=== PATIENT | male | born 1980 ===

== ENCOUNTER 2017-11-26 17:22 | Inpatient (IN) | payer OTHER ==
[2017-11-26] MEDS ORDERED: Sodium Chloride 0.9% 1,000 ML IV STA ×3 (18:02→20:38)
--- NOTE | 2017-11-26 18:21 | ED PDOC ---
Arrival/HPI - General Historian: Patient - History of Present Illness Time/Duration: Other (3 days) Symptom Onset: Gradual Symptom Course: Unchanged Quality: Aching Severity Level: 2 <Nivia Alex - Last Filed: 11/26/17 22:42> <Tammy To - Last Filed: 11/27/17 16:02> - General Time Seen by Provider: 11/26/17 18:01 - History of Present Illness Narrative History of Present Illness (Text): 11/26/17 18:18 37-year-old male presents today with dark urine 3 days. Patient states 3 days ago he started doing a heavy workout and eating healthy and drinking lots of fluids. Patient states he started to notice that his urine changed in color and over the past 3 days he has been having continual dark urine. He denies dysuria or urinary frequency. Denies abdominal pain. Denies nausea or vomiting. Denies chest pain or shortness of breath. He denies back/flank pain. Patient states he has generalized body aches which he correlates to working out. No other complaints. No medications have been taken at home. (Nivia Alex) Past Medical History - Provider Review Nursing Documentation Reviewed: Yes - Travel History Have you recently traveled outside [place] w/in the past 3 mons?: No - Tetanus Immunization Tetanus Immunization: Unknown <Nivia Alex - Last Filed: 11/26/17 22:42> Family/Social History - Physician Review Nursing Documentation Reviewed: Yes Family/Social History: Unknown Family HX <Nivia Alex - Last Filed: 11/26/17 22:42> Allergies/Home Meds <Nivia Alex - Last Filed: 11/26/17 22:42> <Tammy To - Last Filed: 11/27/17 16:02> Allergies/Adverse Reactions: Allergies No Known Allergies Allergy (Verified 11/26/17 18:02) Home Medications: Home Meds Medication Instructions Recorded Confirmed No Known Home Med 11/26/17 11/26/17 Review of Systems - Review of Systems Constitutional: Other (bodyaches). absent: Fatigue, Fevers Respiratory: absent: SOB, Cough Cardiovascular: absent: Chest Pain, Palpitations Gastrointestinal: absent: Abdominal Pain, Nausea, Vomiting Genitourinary Male: Other (dark urine). absent: Dysuria, Frequency, Hematuria Musculoskeletal: absent: Back Pain, Neck Pain Skin: absent: Rash, Pruritis Neurological: absent: Headache, Dizziness Psychiatric: absent: Anxiety, Depression, Suicidal Ideation <Nivia Alex - Last Filed: 11/26/17 22:42> Physical Exam Vital Signs Reviewed: Yes Temperature: Afebrile Blood Pressure: Normal Pulse: Regular Respiratory Rate: Normal Appearance: Positive for: Well-Appearing, Non-Toxic, Comfortable Pain Distress: None Mental Status: Positive for: Alert and Oriented X 3 - Systems Exam Head: Present: Atraumatic Mouth: Present: Moist Mucous Membranes Neck: Present: Normal Range of Motion Respiratory/Chest: Present: Clear to Auscultation, Good Air Exchange. No: Respiratory Distress, Accessory Muscle Use Cardiovascular: Present: Regular Rate and Rhythm, Normal S1, S2. No: Murmurs Abdomen: Present: Normal Bowel Sounds. No: Tenderness, Distention, Peritoneal Signs, Rebound, Guarding Back: Present: Normal Inspection. No: CVA Tenderness, Midline Tenderness, Paraspinal Tenderness Upper Extremity: Present: Normal ROM Lower Extremity: Present: Normal ROM Neurological: Present: GCS=15, Speech Normal Skin: Present: Warm, Dry, Normal Color. No: Rashes Psychiatric: Present: Alert, Oriented x 3 <Nivia Alex - Last Filed: 11/26/17 22:42> Vital Signs Temp Pulse Resp BP Pulse Ox 11/26/17 23:00 62 18 148/84 100 11/26/17 19:51 62 18 130/78 100 11/26/17 17:50 98.8 F 64 18 135/80 99 Medical Decision Making <Nivia Alex - Last Filed: 11/26/17 22:42> <Tammy To - Last Filed: 11/27/17 16:02> ED Course and Treatment: 11/26/17 18:20 37yr old male with 3 day history of dark colored urine. generalized bodyaches. vitals stable. cbc; wnl cmp; elevated ast; 1826. alt;616 cpk; [id number] UA: + blood, + ketones Pt given NS iv bolus 11/26/17 20:57 pt given a total of 3L NS; case discussed with ICU; dr. martino; accepts ICU admission for rhabdomyolysis with elevated LFTs Impression: Rhabdomyolysis, elevated LFTs Admit to ICU (Nivia Alex) - Lab Interpretations Lab Results: 11/26/17 17:00 11/26/17 17:00 Lab Results 11/26/17 17:00: PT 10.3, INR 0.91 L, APTT 30.6 11/26/17 17:00: Alcohol, Quantitative < 10 11/26/17 17:00: Salicylates < 1 L, Acetaminophen < 10.0 L 11/26/17 17:00: WBC 8.9, RBC 4.40, Hgb 13.8 L, Hct 40.6 L, MCV 92.3, MCH 31.4, MCHC 34.0, RDW 13.5, Plt Count 158, MPV 12.5 H, Gran % 73.3 H, Lymph % (Auto) 18.6 L, [place] % (Auto) 4.4, Eos % (Auto) 3.6, Baso % (Auto) 0.1, Gran # 6.52 H, Lymph # (Auto) 1.7, [place] # (Auto) 0.4, Eos # (Auto) 0.3, Baso # (Auto) 0.01 11/26/17 17:00: Sodium 143, Potassium 4.1, Chloride 109 H, Carbon Dioxide 28, Anion Gap 10, BUN 12, Creatinine 0.8, Est GFR ( Amer) > 60, Est GFR (Non- Af Amer) > 60, Random Glucose 95, Calcium 9.2, Total Bilirubin 0.7, AST 1826 H, ALT 616 H, Alkaline Phosphatase 56, Total Creatine Kinase 516278 H, Total Protein 6.5, Albumin 3.8, Globulin 2.7, Albumin/Globulin Ratio 1.4 11/26/17 17:00: Urine Color Yellow, Urine Appearance Sl cloudy, Urine pH 6.5, Ur Specific [place] >= 1.030, Urine Protein 100 H, Urine Glucose (UA) Negative, Urine Ketones Trace H, Urine Blood Large H, Urine Nitrate Negative, Urine Bilirubin Small H, Urine Urobilinogen 0.2, Ur Leukocyte Esterase Negative, Urine RBC 2 - 5, Urine WBC Negative - Medication Orders Current Medication Orders: Famotidine (Pepcid) 40 mg PO HS [facility] Last Admin: 11/26/17 23:36 Dose: 40 mg Heparin Sodium (Porcine) (Heparin) 5,000 units SC Q12 [facility] PRN Reason: Protocol Last Admin: 11/27/17 09:24 Dose: 5,000 units Subcutaneous Administrations Document 11/27/17 09:24 JUR (Rec: 11/27/17 09:24 JUR [facility] [id number]) Injection Site MAR Injection Site Right Arm Charges for Administration # of Subcutaneous Administrations 1 Lactated Ringer's (Lactated Ringer's) 1,000 mls @ 150 mls/hr IV .Q6H40M [facility] Ondansetron HCl (Zofran Inj) 4 mg IVP Q6H PRN PRN Reason: Nausea/Vomiting Discontinued Medications Sodium Chloride (Sodium Chloride 0.9%) 1,000 mls @ 999 mls/hr IV .Q1H1M STA Stop: 11/26/17 19:02 Last Admin: 11/26/17 18:03 Dose: 999 mls/hr eMAR Start Stop Document 11/26/17 18:03 SF (Rec: 11/26/17 18:19 [email or web address]) Intravenous Solution Start Date 11/26/17 Start Time 18:03 End Date 11/26/17 End time 19:04 Total Infusion Time 61 Sodium Chloride (Sodium Chloride 0.9%) 1,000 mls @ 999 mls/hr IV .Q1H1M STA Stop: 11/26/17 20:49 Last Admin: 11/26/17 19:52 Dose: 999 mls/hr eMAR Start Stop Document 11/26/17 19:52 SF (Rec: 11/26/17 19:52 SF [facility] [email or web address]) Intravenous Solution Start Date 11/26/17 Start Time 19:52 End Date 11/26/17 End time 20:53 Total Infusion Time 61 Sodium Chloride (Sodium Chloride 0.9%) 1,000 mls @ 999 mls/hr IV .Q1H1M STA Stop: 11/26/17 21:38 Last Admin: 11/26/17 20:46 Dose: 999 mls/hr eMAR Start Stop Document 11/26/17 20:46 SF (Rec: 11/26/17 20:46 SF [facility] [email or web address]) Intravenous Solution Start Date 11/26/17 Start Time 20:46 End Date 11/26/17 End time 21:47 Total Infusion Time 61 Lactated Ringer's (Lactated Ringer's) 1,000 mls @ 300 mls/hr IV .Q3H20M [facility] Last Admin: 11/27/17 13:55 Dose: 300 mls/hr eMAR Start Stop Document 11/27/17 13:55 MJO (Rec: 11/27/17 13:55 MJO [id number]) Intravenous Solution Start Date 11/27/17 Start Time 13:55 - PA / TOOTH INSPECTOR / Resident Statement /DO has reviewed & agrees with the documentation as recorded. <Tammy To - Last Filed: 11/27/17 16:02> Disposition/Present on Arrival - Present on Arrival Any Indicators Present on Arrival: No History of DVT/PE: No History of Uncontrolled Diabetes: No Urinary Catheter: No History of Decub. Ulcer: No - Disposition Have Diagnosis and Disposition been Completed?: Yes Disposition Time: 20:58 Patient Plan: ICU <Nivia Alex - Last Filed: 11/26/17 22:42> <Tammy To - Last Filed: 11/27/17 16:02> - Disposition Diagnosis: Rhabdomyolysis, Elevated LFTs Disposition: HOSPITALIZED Condition: CRITICAL
[2017-11-26 18:30] LABS: BASO # 0.01 K/mm3 (0.0-2.0); BASO % 0.1 % (0.0-3.0); EOS # 0.3 (0.0-0.7); EOS % 3.6 % (1.5-5.0); GRAN # 6.52 (1.4-6.5); GRAN % 73.3 % (50.0-68.0); HEMOGLOBIN 13.8 g/dL (14.0-18.0); LYMPH # 1.7 (1.2-3.4); LYMPH % 18.6 % (22.0-35.0); MEAN CELL VOLUME 92.3 fl (80.0-105.0); MEAN CORPUSCULAR HEMOGLOBIN 31.4 pg (25.0-35.0); MEAN PLATELET VOLUME 12.5 fl (7.0-11.0); MONO # 0.4 (0.1-0.6); MONO % 4.4 % (1.0-6.0); RBC 4.4 10^6/uL (3.5-6.1); RED CELL DISTRIBUTION WIDTH 13.5 % (11.5-14.5); WHITE BLOOD COUNT 8.9 10^3/ul (4.5-11.0)
[2017-11-26 18:33] LABS: PH,URINE 6.5 (4.7-8.0); URINE BILIRUBIN SMALL (NEGATIVE); URINE BLOOD LARGE (NEGATIVE); URINE GLUCOSE (UA) NEGATIVE (NEGATIVE); URINE LEUKOCYTE ESTERASE NEGATIVE Leu/uL (NEGATIVE); URINE PROTEIN 100 mg/dL (<30 mg/dL); URINE UROBILINOGEN 0.2 E.U./dL (<1 E.U./dL)
[2017-11-26 18:34] LABS: URINE APPEARANCE SL CLOUDY (CLEAR); URINE COLOR YELLOW (YELLOW)
[2017-11-26 18:35] LABS: URINE WBC NEGATIVE /hpf (0-6)
[2017-11-26 19:10] LABS: ALB/GLOB RATIO 1.4 (1.1-1.8); ALBUMIN 3.8 g/dL (3.0-4.8); ALT/SGPT 616 U/L (7-56); BLOOD UREA NITROGEN 12 mg/dL (7-21); CALCIUM 9.2 mg/dL (8.4-10.5); GFR AFRICAN-AMERICAN > 60; GFR NON-AFRICAN AMERICAN > 60
[2017-11-26 19:16] LABS: AST/SGOT 1826 U/L (17-59)
[2017-11-26 21:13] LABS: INR 0.91 (0.93-1.08); PARTIAL THROMBOPLASTIN TIME 30.6 Seconds (25.1-36.5); PROTHROMBIN TIME 10.3 SECONDS (9.4-12.5)
[2017-11-26 21:22] LABS: ACETAMINOPHEN < 10.0 ug/ml (10.0-20.0); SALICYLATE < 1 mg/dL (2.0-20.0)
[2017-11-26 22:23] LABS: BARBITURATES, UR NEGATIVE (NEGATIVE); BENZODIAZEPINES, UR NEGATIVE (NEGATIVE); OPIATES, UR NEGATIVE (NEGATIVE); PHENCYCLIDINE, UR NEGATIVE (NEGATIVE)
[2017-11-26] MEDS: Lactated Ringer's 1,000 ML IV SCH (23:15)
--- NOTE | 2017-11-27 00:37 | CP.PCM.HP ---
<Donna Benito - Last Filed: 11/27/17 03:24> History of Present Illness - History of Present Illness History of Present Illness: PGY-[address] Hayes H&P, ICU consult: Rhabdomyolysis 37 years old male, active smoker, with no significant medical history, who does not work out routinely, started to work out vigorously 3 days ago, and noticed dark urine 2 days ago, which prompted pt to come to the ED. Pt states that he had a whole body work out, including lifting 100lb weighs x 15 for 3 reps. After 1st day of work out, he started to have whole body muscle ache. After 2nd and 3rd day of work out, whole body ache persists, and he noticed stefany color urine. He did not take any medicine for muscle pain. He denies using steroid, testosterone, herbal supplements. The amount and frequency of urination is normal, no weak stream, no sensation of incomplete emptying, no dysuria, no pain. 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 Dr. James Mendes, opthalmologist FH: No inherited myopathy. No Autoimmune dz. (+) DM, HTN SH: Active smoker 1ppd x 20 years. 2-3 beer per month. no drugs ALL: NKDA Med: None. Occasional advil for pain PMD: None Present on Admission - Present on Admission Any Indicators Present on Admission: No Past Patient History - Tetanus Immunizations Tetanus Immunization: Unknown - Past Social History Smoking Status: Light Smoker < 10 Cigarettes Daily - CARDIAC Hx Cardiac Disorders: No - PULMONARY Hx Respiratory Disorders: No - NEUROLOGICAL Hx Neurological Disorder: No - HEENT Hx HEENT Problems: No - RENAL Hx Chronic Kidney Disease: No - ENDOCRINE/METABOLIC Hx Endocrine Disorders: No - HEMATOLOGICAL/ONCOLOGICAL Hx Blood Disorders: No - INTEGUMENTARY Hx Dermatological Problems: No - MUSCULOSKELETAL/RHEUMATOLOGICAL Hx Musculoskeletal Disorders: No - GASTROINTESTINAL Hx Gastrointestinal Disorders: No - GENITOURINARY/GYNECOLOGICAL Hx Genitourinary Disorders: No - PSYCHIATRIC Hx Psychophysiologic Disorder: No Hx Substance Use: No - SURGICAL HISTORY Hx Surgeries: Yes Other/Comment: right eye surgery x2 in 2013 post trauma to eye - ANESTHESIA Hx Anesthesia: Yes Meds Allergies/Adverse Reactions: Allergies Allergy/AdvReac Type Severity Reaction Status Date / Time No Known Allergies Allergy Verified 11/26/17 18:02 Physical Exam - Constitutional Appears: No Acute Distress - Head Exam Head Exam: ATRAUMATIC, NORMAL INSPECTION, NORMOCEPHALIC - Eye Exam Eye Exam: EOMI, Normal appearance Pupil Exam: NORMAL ACCOMODATION, PERRL - ENT Exam ENT Exam: Mucous Membranes Moist, Normal Exam - Neck Exam Additional comments: supple - Respiratory Exam Respiratory Exam: Clear to Auscultation Bilateral, NORMAL BREATHING PATTERN. absent: Rales, Rhonchi, Wheezes - Cardiovascular Exam Cardiovascular Exam: REGULAR RHYTHM, +S1, +S2 - GI/Abdominal Exam GI & Abdominal Exam: Normal Bowel Sounds, Soft. absent: Guarding, Tenderness - Extremities Exam Extremities exam: Positive for: pedal pulses present. Negative for: calf tenderness - Back Exam Back exam: absent: CVA tenderness (L), CVA tenderness (R) - Neurological Exam Neurological exam: Alert, CN II-XII Intact, Oriented x3, Reflexes Normal - Psychiatric Exam Psychiatric exam: Normal Affect, Normal Mood Results - Vital Signs Recent Vital Signs: Last Vital Signs Temp 98.8 F 11/26/17 17:50 Pulse 62 11/26/17 23:00 Resp 18 11/26/17 23:00 BP 148/84 11/26/17 23:00 Pulse Ox 100 11/26/17 23:00 - Labs Result Diagrams: 11/26/17 17:00 11/26/17 17:00 Labs: Laboratory Results - last 24 hr 11/26/17 11/26/17 11/26/17 21:00 21:00 22:49 Phosphorus 3.3 Magnesium 1.9 Urine Opiates Screen Negative Urine Methadone Screen Negative Ur Barbiturates Screen Negative Ur Phencyclidine Scrn Negative Ur Amphetamines Screen Negative U Benzodiazepines Scrn Negative U Oth Cocaine Metabols Negative U Cannabinoids Screen Negative Influenza Typ A,B (EIA) Negative for flu a/b Assessment & Plan - Assessment and Plan (Free Text) Plan: 37 years old male, active smoker, with no significant medical history, who does not work out routinely, started to work out vigorously 3 days ago, and noticed dark urine with whole body ache. He denies using steroid, testosterone, herbal supplements. His Total Creatine Kinase is [id number], AST 1826, ALT 616. He has Exertional rhabdomyolysis. Elevated AST/ALT likely from muscle injury. Neuro - AAO x 3 Pulm - O2 PRN Titrate to SaO2 > 92% Cardio - Maintain nomotensive, HR 60-100 Renal - LR @ 300 - CK q6h - Goal U/O is 200-300 per hour. Notify doctor if goal is not met - strict i/o, daily wt. GI - hepatitis panel - AST/ALT q6h - heart health diet - Pepcid 40 HS - Zofran PRN Musculoskeletal - May consider JASON, Ant DVT prophylaxis - heparin GI prophylaxis - low risk of stress ulcer s/r/d/w Dr. Hayes <Abigail,Vitaly Q - Last Filed: 11/27/17 07:23> Results - Vital Signs Recent Vital Signs: Last Vital Signs Temp 98.4 F 11/27/17 00:32 Pulse 47 L 11/27/17 06:00 Resp 18 11/27/17 00:32 BP 140/82 11/27/17 00:32 Pulse Ox 100 11/26/17 23:00 - Labs Result Diagrams: 11/26/17 17:00 11/26/17 17:00 Labs: Laboratory Results - last 24 hr 11/26/17 11/26/17 11/26/17 21:00 21:00 22:49 Phosphorus 3.3 Magnesium 1.9 AST ALT Total Creatine Kinase CK-MB (CK-2) CK-MB (CK-2) % Urine Opiates Screen Negative Urine Methadone Screen Negative Ur Barbiturates Screen Negative Ur Phencyclidine Scrn Negative Ur Amphetamines Screen Negative U Benzodiazepines Scrn Negative U Oth Cocaine Metabols Negative U Cannabinoids Screen Negative Influenza Typ A,B (EIA) Negative for flu a/b 11/27/17 01:40 Phosphorus Magnesium AST 1434 H ALT 531 H Total Creatine Kinase 59114 H CK-MB (CK-2) 23.2 H CK-MB (CK-2) % 0.0 L Urine Opiates Screen Urine Methadone Screen Ur Barbiturates Screen Ur Phencyclidine Scrn Ur Amphetamines Screen U Benzodiazepines Scrn U Oth Cocaine Metabols U Cannabinoids Screen Influenza Typ A,B (EIA) Attending/Attestation - Attestation I have personally seen and examined this patient.: Yes I have fully participated in the care of the patient.: Yes I have reviewed all pertinent clinical information: Yes Notes (Text): 11/27/17 07:13 I agree with the note and exam by the resident as listed above with the addition /exception of the followin37 y/o male without a significant PMHx came to the ED due to darkened urine color and muscle cramps for 2 days. 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 In the Ed he was found to be in rhabdomyolysis with a CK over 100K; aggressive IVF hydration initiated and maintained while in the ICU. Elevated transaminitis likely secondary to rhabdo as well labs all reviewed personally case discussed with the residents and NIKITA Gonzáles total time of care: 40 minutes
[2017-11-27 00:50] VITALS: BMI 25.5
[2017-11-27 02:58] LABS: CK-MB 23.2 ng/mL (0.0-3.6)
[2017-11-27] MEDS: Lactated Ringer's 1,000 ML IV SCH ×4 (02:58→13:55)
[2017-11-27 07:03] LABS: BASO # 0.01 K/mm3 (0.0-2.0); BASO % 0.1 % (0.0-3.0); EOS # 0.3 (0.0-0.7); EOS % 4.3 % (1.5-5.0); GRAN # 4.99 (1.4-6.5); GRAN % 66.4 % (50.0-68.0); HEMOGLOBIN 12.3 g/dL (14.0-18.0); LYMPH # 1.9 (1.2-3.4); LYMPH % 25.2 % (22.0-35.0); MEAN CELL VOLUME 92.8 fl (80.0-105.0); MEAN CORPUSCULAR HEMOGLOBIN 30.5 pg (25.0-35.0); MEAN CORPUSCULAR HGB CONC 32.9 g/dl (31.0-37.0); MEAN PLATELET VOLUME 12.7 fl (7.0-11.0); MONO # 0.3 (0.1-0.6); RBC 4.03 10^6/uL (3.5-6.1); RED CELL DISTRIBUTION WIDTH 13.6 % (11.5-14.5); WHITE BLOOD COUNT 7.5 10^3/ul (4.5-11.0)
[2017-11-27 07:37] LABS: ALB/GLOB RATIO 1.2 (1.1-1.8); ALBUMIN 2.9 g/dL (3.0-4.8); ALT/SGPT 514 U/L (7-56); AST/SGOT 1435 U/L (17-59); BLOOD UREA NITROGEN 6 mg/dL (7-21); CALCIUM 8.8 mg/dL (8.4-10.5); GFR AFRICAN-AMERICAN > 60; GFR NON-AFRICAN AMERICAN > 60
[2017-11-27 08:26] LABS: CK-MB 19.2 ng/mL (0.0-3.6)
--- NOTE | 2017-11-27 10:26 | CARD ---
APPROVED REPORT EKG Measurement Heart [id number] IN [id number] <Conclusion> Normal sinus rhythm Incomplete right bundle branch block Borderline ECG
--- NOTE | 2017-11-27 11:35 | CON ---
DATE: 11/27/2017 HISTORY OF PRESENT ILLNESS: This is a 37-year-old with gentleman who is an active smoker; however, without significant past medical history, who presented after his routine workout including lifting weights who started noticing dark urine about 2 days ago and which did not resolve. He denies any other complaints. No fever, no chills, no sweats. No nausea, no vomiting, no diarrhea. No muscle cramps. The patient was found to have rhabdomyolysis with CPK coming up to 100,000s. The aggressive hydration was started and Hernandez catheter was placed for urine output. Over the night, urine output was 100-200 mL per hour. He is on 300 mL/hour of lactated Ringer. He reports feeling much better since his admission to the ICU. The patient does report some muscle aches prior to admission. PAST MEDICAL HISTORY: Right eye blindness. PAST SURGICAL HISTORY: Right renal detachment, status post surgery in 2013. Right cataract surgery. FAMILY HISTORY: Not contributory. SOCIAL HISTORY: The patient is active smoker, 1 pack a day for 20 years. He drinks 2-3 beers per month. No drugs. ALLERGIES: NKDA. MEDICATIONS: None. REVIEW OF SYSTEMS: Review of 12-organ system other than mentioned in history of present illness is negative. PHYSICAL EXAMINATION: VITAL SIGNS: Temperature 98.4, blood pressure 140/82, heart rate 65, respiratory rate 18, oxygen saturation 100% on room air. ENT: Head and neck atraumatic. LUNGS: Clear to auscultation bilaterally. HEART: Regular rate and rhythm. S1 and S2 normal. ABDOMEN: Soft, nontender and nondistended. MUSCULOSKELETAL: No C/C/E. NEURO: The patient moves all extremities spontaneously. SKIN: Moist. PSYCH: The patient is alert and oriented x3. LABORATORY DATA: WBC is 7.5, hemoglobin 12.3, platelet count 140. Sodium 143, potassium 4.1, chloride 108, carbon dioxide 31, BUN 6, creatinine 0.7, glucose 85, AST 1435, ALT 514 down from 531, CPK 72,137 down from 110,532. Influenza negative. Urine drug screen is negative. Salicylates, acetaminophen and alcohol less than 1, 10 and 10 respectively. INR 0.91. MEDICATIONS: Heparin subcu, Pepcid, lactated Ringer, Zofran p.r.n. ASSESSMENT AND PLAN: This is a 37-year-old gentleman who presented with severe rhabdomyolysis without acute kidney injury. He was started on lactated Ringer due to shortage of normal saline and his urine output being adequate. He is asymptomatic at present time. He is hemodynamically and respiratory malloy stable. He is able to protect his airways and reports that he is hungry. We will advance his oral diet. We will continue with deep venous thrombosis/gastrointestinal prophylaxis. We will maintain euvolemia, euglycemia, normothermia and oxygen saturation more than 90%. We will continue with goal of urine output more than 0.5 mL/kg/hour. Okay to downgrade to Med-Surg. ccm time 40 min Andre Robledo MD [facility]
[2017-11-27 12:00] LABS: ALT/SGPT 552 U/L (7-56); BLOOD UREA NITROGEN 7 mg/dL (7-21); CALCIUM 9.2 mg/dL (8.4-10.5); GFR AFRICAN-AMERICAN > 60; GFR NON-AFRICAN AMERICAN > 60
[2017-11-27 12:09] LABS: AST/SGOT 1462 U/L (17-59)
[2017-11-27 13:33] LABS: CK-MB 16.2 ng/mL (0.0-3.6)
[2017-11-27] MEDS ORDERED: Influenza Vaccine 60 mcg/0.5 mL SYR (4YR UP) IM ONE (13:42)
[2017-11-27 13:59] LABS: HEPATITIS B SURFACE AG Negative (NEGATIVE)
[2017-11-27 14:05] LABS: HEPATITIS A IGM NEGATIVE (NEGATIVE); HEPATITIS B CORE AB NEGATIVE (NEGATIVE)
--- NOTE | 2017-11-27 14:05 | CP.PCM.CON ---
History of Present Illness - History of Present Illness History of Present Illness: Nephrology Consultation Note: Assessment: Stable Severe rhabdomyolysis likely due to physical workout/exertion Active smoker Plan No acute need for renal replacement therapy at this time. Monitor Input/Output, daily weights and renal function with basic metabolic panel, And electrolytes closely Continue the IV fluids. Can discontinue Hernandez catheter Lowered unable to 200 mL per hour tomorrow Continue to monitor CPK level Replace electrolytes as needed Can change IV fluid to normal saline if serum sodium < 135 meq/L Dose meds/antibiotics for Normal GFR. Avoid fleets enema/magnesium based laxatives. Avoid nephrotoxins/NSAIDs/ iodinated contrast (unless needed emergently) Glycemic control Further work up/management as per primary team Patient advised to stop smoking Patient advised for gradual physical workout in the future and avoid heavy physical exertion. Thanks for allowing me to participate in care of your patient. Will follow patient with you. Please call if any Qs. Discussed with team Dr Yves Laguna Office: [phone] Chief Complaint; Muscle aches HPI: Pt is a 37-year-old male without any past medical history active smoker 1 pack per day, started working out recently for last 3 days, came with the complaint of body aches and dark-colored urine. Found to have severe rhabdomyolysis, placed in the ICU then transferred to [facility] floor. Seen for nephrology consultation Patient at this time feels much better. Denies any complaints. Denies any drugs. Denies OTC/herbal meds or NSAIDs No recent iodinated contrast exposure. No obvious episodes of low BP. ROS: Cardiovascular: No chest pain. Pulmonary: No shortness of breath Gastrointestinal: denies abdominal pain No nausea. No vomiting. Genitourinary: No pain while urinating. Denies blood in urine. All other negative except as mentioned in HPI Physical Examination: bedside General Appearance: Comfortable, in no acute respiratory distress, co-operative . Vitals reviewed and noted as below Head; Atraumatic, normocephalic ENT: no ulcers no thrush. Tongue is midline. Oropharynx: no rash or ulcers. EYES: Eye muscles and extraocular movement intact. Sclera is anicteric. Right eye loss because of injury in the past Neck; supple no lymphadenopathy, no thyromegaly or bruit Lungs: Normal respiratory rate/effort. Breath sounds bilateral equal and clear Heart: Normal rate. s1s2 normal. No rub or gallop. Extremities: no edema. No varicose veins Neurological: Patient is alert, awake and oriented to person, place and time. No focal deficit. Strength bilateral appropriate and equal Skin: Warm and dry. Normal turgor. No rash. Palpitation: Normal elasticity for age Abdomen: Abdomen is soft. Bowel sounds +. There is no abdominal tenderness, no guarding/rigidity no organomegaly Psych: normal insight and normal affect/mood MSK: no joint tenderness or swelling. Digits and nails normal, no deformity : kidney or bladder not palpable. His Hernandez catheter Labs/imaging reviewed. Past medical history, past surgical history, family history, social history, allergy reviewed and noted as below Family hx: no hx of CKD. Rest non-contributory Past Patient History - Tetanus Immunizations Tetanus Immunization: Unknown - Past Social History Smoking Status: Light Smoker < 10 Cigarettes Daily - CARDIAC Hx Cardiac Disorders: No - PULMONARY Hx Respiratory Disorders: No - NEUROLOGICAL Hx Neurological Disorder: No - HEENT Hx HEENT Problems: No - RENAL Hx Chronic Kidney Disease: No - ENDOCRINE/METABOLIC Hx Endocrine Disorders: No - HEMATOLOGICAL/ONCOLOGICAL Hx Blood Disorders: No - INTEGUMENTARY Hx Dermatological Problems: No - MUSCULOSKELETAL/RHEUMATOLOGICAL Hx Musculoskeletal Disorders: No - GASTROINTESTINAL Hx Gastrointestinal Disorders: No - GENITOURINARY/GYNECOLOGICAL Hx Genitourinary Disorders: No - PSYCHIATRIC Hx Psychophysiologic Disorder: No Hx Substance Use: No - SURGICAL HISTORY Hx Surgeries: Yes Other/Comment: right eye surgery x2 in 2013 post trauma to eye - ANESTHESIA Hx Anesthesia: Yes Meds Allergies/Adverse Reactions: Allergies Allergy/AdvReac Type Severity Reaction Status Date / Time No Known Allergies Allergy Verified 11/26/17 18:02 - Medications Medications: Current Medications Famotidine (Pepcid) 40 mg PO HS [facility] Last Admin: 11/26/17 23:36 Dose: 40 mg Heparin Sodium (Porcine) (Heparin) 5,000 units SC Q12 [facility] PRN Reason: Protocol Last Admin: 11/27/17 09:24 Dose: 5,000 units Lactated Ringer's (Lactated Ringer's) 1,000 mls @ 300 mls/hr IV .Q3H20M [facility] Last Admin: 11/27/17 13:55 Dose: 300 mls/hr Ondansetron HCl (Zofran Inj) 4 mg IVP Q6H PRN PRN Reason: Nausea/Vomiting Results - Vital Signs Recent Vital Signs: Last Vital Signs Temp 98.4 F 11/27/17 00:32 Pulse 58 L 11/27/17 09:40 Resp 19 11/27/17 09:40 BP 139/82 11/27/17 09:00 Pulse Ox 97 11/27/17 09:40 - Labs Result Diagrams: 11/27/17 05:45 11/27/17 11:40 Labs: Laboratory Results - last 24 hr 11/26/17 11/26/17 11/26/17 21:00 21:00 22:49 WBC RBC Hgb Hct MCV MCH MCHC RDW Plt Count MPV Gran % Lymph % (Auto) [place] % (Auto) Eos % (Auto) Baso % (Auto) Gran # Lymph # (Auto) [place] # (Auto) Eos # (Auto) Baso # (Auto) Sodium Potassium Chloride Carbon Dioxide Anion Gap BUN Creatinine Est GFR ( Amer) Est GFR (Non-Af Amer) Random Glucose Calcium Phosphorus 3.3 Magnesium 1.9 Total Bilirubin AST ALT Alkaline Phosphatase Total Creatine Kinase CK-MB (CK-2) CK-MB (CK-2) % Total Protein Albumin Globulin Albumin/Globulin Ratio Urine Opiates Screen Negative Urine Methadone Screen Negative Ur Barbiturates Screen Negative Ur Phencyclidine Scrn Negative Ur Amphetamines Screen Negative U Benzodiazepines Scrn Negative U Oth Cocaine Metabols Negative U Cannabinoids Screen Negative Influenza Typ A,B (EIA) Negative for flu a/b 11/27/17 11/27/17 11/27/17 01:40 05:45 05:45 WBC 7.5 RBC 4.03 Hgb 12.3 L Hct 37.4 L MCV 92.8 MCH 30.5 MCHC 32.9 RDW 13.6 Plt Count 140 MPV 12.7 H Gran % 66.4 Lymph % (Auto) 25.2 [place] % (Auto) 4.0 Eos % (Auto) 4.3 Baso % (Auto) 0.1 Gran # 4.99 Lymph # (Auto) 1.9 [place] # (Auto) 0.3 Eos # (Auto) 0.3 Baso # (Auto) 0.01 Sodium 143 Potassium 4.0 Chloride 108 H Carbon Dioxide 31 Anion Gap 8 L BUN 6 L Creatinine 0.7 L Est GFR ( Amer) > 60 Est GFR (Non-Af Amer) > 60 Random Glucose 85 Calcium 8.8 Phosphorus 3.7 Magnesium 1.8 Total Bilirubin 0.6 AST 1434 H 1435 H ALT 531 H 514 H Alkaline Phosphatase 43 Total Creatine Kinase 40725 H 42710 H CK-MB (CK-2) 23.2 H 19.2 H CK-MB (CK-2) % 0.0 L 0.0 L Total Protein 5.4 L Albumin 2.9 L Globulin 2.5 Albumin/Globulin Ratio 1.2 Urine Opiates Screen Urine Methadone Screen Ur Barbiturates Screen Ur Phencyclidine Scrn Ur Amphetamines Screen U Benzodiazepines Scrn U Oth Cocaine Metabols U Cannabinoids Screen Influenza Typ A,B (EIA) 11/27/17 11:40 WBC RBC Hgb Hct MCV MCH MCHC RDW Plt Count MPV Gran % Lymph % (Auto) [place] % (Auto) Eos % (Auto) Baso % (Auto) Gran # Lymph # (Auto) [place] # (Auto) Eos # (Auto) Baso # (Auto) Sodium 143 Potassium 4.2 Chloride 107 Carbon Dioxide 32 Anion Gap 8 L BUN 7 Creatinine 0.8 Est GFR ( Amer) > 60 Est GFR (Non-Af Amer) > 60 Random Glucose 83 Calcium 9.2 Phosphorus Magnesium Total Bilirubin AST 1462 H ALT 552 H Alkaline Phosphatase Total Creatine Kinase 83092 H CK-MB (CK-2) 16.2 H CK-MB (CK-2) % 0.0 L Total Protein Albumin Globulin Albumin/Globulin Ratio Urine Opiates Screen Urine Methadone Screen Ur Barbiturates Screen Ur Phencyclidine Scrn Ur Amphetamines Screen U Benzodiazepines Scrn U Oth Cocaine Metabols U Cannabinoids Screen Influenza Typ A,B (EIA)
[2017-11-27 14:16] LABS: HEPATITIS C ANTIBODY NEGATIVE (NEGATIVE)
[2017-11-27 16:37] LABS: ALB/GLOB RATIO 1.2 (1.1-1.8); ALBUMIN 3.3 g/dL (3.0-4.8); ALT/SGPT 556 U/L (7-56); BLOOD UREA NITROGEN 8 mg/dL (7-21); CALCIUM 9.2 mg/dL (8.4-10.5); GFR AFRICAN-AMERICAN > 60; GFR NON-AFRICAN AMERICAN > 60
[2017-11-27 16:47] LABS: AST/SGOT 1453 U/L (17-59)
[2017-11-27 21:09] LABS: ALB/GLOB RATIO 1.3 (1.1-1.8); ALBUMIN 3.2 g/dL (3.0-4.8); ALT/SGPT 531 U/L (7-56); BLOOD UREA NITROGEN 8 mg/dL (7-21); CALCIUM 8.9 mg/dL (8.4-10.5); GFR AFRICAN-AMERICAN > 60; GFR NON-AFRICAN AMERICAN > 60
[2017-11-27 21:16] LABS: AST/SGOT 1356 U/L (17-59)
[2017-11-28 02:21] LABS: ALB/GLOB RATIO 1.3 (1.1-1.8); ALBUMIN 3.2 g/dL (3.0-4.8); ALT/SGPT 525 U/L (7-56); BLOOD UREA NITROGEN 9 mg/dL (7-21); CALCIUM 9.1 mg/dL (8.4-10.5); GFR AFRICAN-AMERICAN > 60; GFR NON-AFRICAN AMERICAN > 60
[2017-11-28 03:10] LABS: AST/SGOT 1329 U/L (17-59)
[2017-11-28 07:59] LABS: BASO # 0.01 K/mm3 (0.0-2.0); BASO % 0.1 % (0.0-3.0); EOS # 0.4 (0.0-0.7); EOS % 5.5 % (1.5-5.0); GRAN # 4.46 (1.4-6.5); GRAN % 61.4 % (50.0-68.0); HEMOGLOBIN 12.9 g/dL (14.0-18.0); LYMPH # 2.1 (1.2-3.4); MEAN CELL VOLUME 91.5 fl (80.0-105.0); MEAN CORPUSCULAR HEMOGLOBIN 31.3 pg (25.0-35.0); MEAN CORPUSCULAR HGB CONC 34.2 g/dl (31.0-37.0); MEAN PLATELET VOLUME 12.7 fl (7.0-11.0); MONO # 0.3 (0.1-0.6); RBC 4.12 10^6/uL (3.5-6.1); RED CELL DISTRIBUTION WIDTH 13.4 % (11.5-14.5); WHITE BLOOD COUNT 7.3 10^3/ul (4.5-11.0)
[2017-11-28 08:27] LABS: ALB/GLOB RATIO 1.2 (1.1-1.8); ALBUMIN 3.1 g/dL (3.0-4.8); ALT/SGPT 500 U/L (7-56); AST/SGOT > 750 U/L (17-59); BLOOD UREA NITROGEN 8 mg/dL (7-21); CALCIUM 8.9 mg/dL (8.4-10.5); GFR AFRICAN-AMERICAN > 60; GFR NON-AFRICAN AMERICAN > 60
[2017-11-28] MEDS: Lactated Ringer's 1,000 ML IV SCH ×3 (08:32→23:37)
[2017-11-28 11:10] LABS: CK-MB 9.8 ng/mL (0.0-3.6)
--- NOTE | 2017-11-28 14:50 | CP.PCM.PN ---
<NessaJuan - Last Filed: 11/28/17 14:53> Subjective - Date & Time of Evaluation Date of Evaluation: 11/28/17 Time of Evaluation: 14:43 - Subjective Subjective: Medicine Progress Note: Dr. Paula Tovar Patient seen and examined at bedside. Upon further questioning, patient revealed that his workout regimen includes about 20 minutes of cardio and strength training with different muscle groups. He has been eating normally and drinking water. He denies use of any nutritional or vitamin supplements. He has never had this issue before. He denies fever, chills, dysuria, urinary frequency, incomplete bladder emptying , back pain, or flank pain. He denies severe pain or weakness. No lightheadedness, headaches, fatigue, weakness. He has no personal or family history of inherited or acquired mitochondrial, metabolic, or muscular diseases. Doing well today, no acute complaints. Objective - Vital Signs/Intake and Output Vital Signs (last 24 hours): Temp Pulse Resp BP Pulse Ox 98.3 F 91 H 20 127/75 93 L 11/28/17 08:22 11/28/17 08:22 11/28/17 08:22 11/28/17 08:22 11/28/17 08:22 Intake and Output: 11/28/17 11/28/17 06:59 18:59 Intake Total 960 Output Total 455 Balance 505 - Medications Medications: Current Medications Famotidine (Pepcid) 40 mg PO HS [facility] Last Admin: 11/27/17 21:47 Dose: 40 mg Heparin Sodium (Porcine) (Heparin) 5,000 units SC Q12 ALDO PRN Reason: Protocol Last Admin: 11/28/17 10:54 Dose: 5,000 units Lactated Ringer's (Lactated Ringer's) 1,000 mls @ 150 mls/hr IV .Q6H40M [facility] Last Admin: 11/28/17 08:32 Dose: 150 mls/hr Ondansetron HCl (Zofran Inj) 4 mg IVP Q6H PRN PRN Reason: Nausea/Vomiting - Labs Labs: 11/28/17 07:20 11/28/17 07:20 PT 10.3 SECONDS (9.4-12.5) 11/26/17 17:00 INR 0.91 (0.93-1.08) L 11/26/17 17:00 APTT 30.6 Seconds (25.1-36.5) 11/26/17 17:00 - Constitutional Appears: Well - Head Exam Head Exam: ATRAUMATIC, NORMAL INSPECTION, NORMOCEPHALIC - Eye Exam Eye Exam: EOMI, Normal appearance, PERRL Pupil Exam: NORMAL ACCOMODATION, PERRL - ENT Exam ENT Exam: Mucous Membranes Moist, Normal Exam - Neck Exam Neck Exam: Full ROM, Normal Inspection. absent: Lymphadenopathy - Respiratory Exam Respiratory Exam: Clear to Ausculation Bilateral, NORMAL BREATHING PATTERN - Cardiovascular Exam Cardiovascular Exam: REGULAR RHYTHM, +S1, +S2. absent: Murmur - GI/Abdominal Exam GI & Abdominal Exam: Soft, Normal Bowel Sounds. absent: Tenderness - Extremities Exam Extremities Exam: Full ROM, Normal Capillary Refill, Normal Inspection. absent : Joint Swelling, Pedal Edema - Back Exam Back Exam: NORMAL INSPECTION - Neurological Exam Neurological Exam: Alert, Awake, CN II-XII Intact, Normal Gait, Oriented x3 - Psychiatric Exam Psychiatric exam: Normal Affect, Normal Mood - Skin Skin Exam: Dry, Intact, Normal Color, Warm Assessment and Plan - Assessment and Plan (Free Text) Assessment: A/P: 67M presents with complaints of dark red urine discoloration. Atraumatic rhabdomyolysis following physical exertion - CK downtrending appropriately - Repeat CK and CMP q6h - Aggressive hydration LR@300 - Maintain goal urine output of 200-300 cc per hour - meeting goal right now - Continue to monitor kidney function Transaminitis - AST/ALT downtrending from admission - Avoid hepatotoxic agents Prophylaxis: Heparin 5000 IU, Zofran prn for nausea Diet: HHD Dispo: Patient likely ready for discharge tomorrow pending appropriate drop in CK levels and no further complaints <Monica Tovar - Last Filed: 11/28/17 18:47> Objective - Vital Signs/Intake and Output Vital Signs (last 24 hours): Temp Pulse Resp BP Pulse Ox 98.2 F 68 20 138/80 99 11/28/17 14:00 11/28/17 14:00 11/28/17 14:00 11/28/17 14:00 11/28/17 14:00 Intake and Output: 11/28/17 11/28/17 06:59 18:59 Intake Total 960 800 Output Total 455 800 Balance 505 0 - Medications Medications: Current Medications Famotidine (Pepcid) 40 mg PO HS [facility] Last Admin: 11/27/17 21:47 Dose: 40 mg Heparin Sodium (Porcine) (Heparin) 5,000 units SC Q12 [facility] PRN Reason: Protocol Last Admin: 11/28/17 10:54 Dose: 5,000 units Lactated Ringer's (Lactated Ringer's) 1,000 mls @ 150 mls/hr IV .Q6H40M [facility] Last Admin: 11/28/17 17:14 Dose: 150 mls/hr Ondansetron HCl (Zofran Inj) 4 mg IVP Q6H PRN PRN Reason: Nausea/Vomiting - Labs Labs: 11/28/17 07:20 11/28/17 07:20 PT 10.3 SECONDS (9.4-12.5) 11/26/17 17:00 INR 0.91 (0.93-1.08) L 11/26/17 17:00 APTT 30.6 Seconds (25.1-36.5) 11/26/17 17:00 Attending/Attestation - Attestation I have personally seen and examined this patient.: Yes I have fully participated in the care of the patient.: Yes I have reviewed all pertinent clinical information, including history, physical exam and plan: Yes Notes (Text): I have seen and examined the patient at bedside. Agree with the above note with the following additions/ exceptions: Briefly this is 67 year old male who presented for evaluation of generalized body aches and hematuria after extreme work out. He was found to have non traumatic exertional rhabdomyolysis. CK is still significantly elevated. Myoglobinuria has resolved. Continue IV hydration. There are no electrolyte abnormalities. Advised patient to do gradual work out in the future to avoid rhabdomyolysis. LFTs trending down as well. Hep panel negative.. Upon discharge patient will follow up with PMD of choice. Dr Monica Tovar
--- NOTE | 2017-11-28 15:26 | CP.PCM.PN ---
Subjective - Date & Time of Evaluation Date of Evaluation: 11/28/17 Time of Evaluation: 15:26 - Subjective Subjective: Nephrology Consultation Note: Assessment: Stable Severe rhabdomyolysis likely due to physical workout/exertion Active smoker Plan No acute need for renal replacement therapy at this time. Monitor Input/Output, daily weights and renal function with basic metabolic panel And electrolytes closely Continue the IV fluids. Continue to monitor CPK level Replace electrolytes as needed Can change IV fluid to normal saline if serum sodium < 135 meq/L Dose meds/antibiotics for Normal GFR. Avoid fleets enema/magnesium based laxatives. Avoid nephrotoxins/NSAIDs/ iodinated contrast (unless needed emergently) Glycemic control Further work up/management as per primary team Patient advised to stop smoking Patient advised for gradual physical workout in the future and avoid heavy physical exertion. Thanks for allowing me to participate in care of your patient. Will follow patient with you. Please call if any Qs. Discussed with team Dr Yves Laguna Office: [phone] Chief Complaint; Muscle aches HPI: Pt is a 37-year-old male without any past medical history active smoker 1 pack per day, started working out recently for last 3 days, came with the complaint of body aches and dark-colored urine. Found to have severe rhabdomyolysis, placed in the ICU then transferred to [facility] floor. Seen for nephrology consultation Patient at this time feels much better. Denies any complaints. Denies any drugs. Denies OTC/herbal meds or NSAIDs No recent iodinated contrast exposure. No obvious episodes of low BP. ROS: Cardiovascular: No chest pain. Pulmonary: No shortness of breath Gastrointestinal: denies abdominal pain No nausea. No vomiting. Genitourinary: No pain while urinating. Denies blood in urine. All other negative except as mentioned in HPI Physical Examination: bedside General Appearance: Comfortable, in no acute respiratory distress, co-operative . Vitals reviewed and noted as below Head; Atraumatic, normocephalic ENT: no ulcers no thrush. Tongue is midline. Oropharynx: no rash or ulcers. EYES: Eye muscles and extraocular movement intact. Sclera is anicteric. Right eye loss because of injury in the past Neck; supple no lymphadenopathy, no thyromegaly or bruit Lungs: Normal respiratory rate/effort. Breath sounds bilateral equal and clear Heart: Normal rate. s1s2 normal. No rub or gallop. Extremities: no edema. No varicose veins Neurological: Patient is alert, awake and oriented to person, place and time. No focal deficit. Strength bilateral appropriate and equal Skin: Warm and dry. Normal turgor. No rash. Palpitation: Normal elasticity for age Abdomen: Abdomen is soft. Bowel sounds +. There is no abdominal tenderness, no guarding/rigidity no organomegaly Psych: normal insight and normal affect/mood MSK: no joint tenderness or swelling. Digits and nails normal, no deformity : kidney or bladder not palpable. Labs/imaging reviewed. Past medical history, past surgical history, family history, social history, allergy reviewed and noted as below Family hx: no hx of CKD. Rest non-contributory Objective - Vital Signs/Intake and Output Vital Signs (last 24 hours): Temp Pulse Resp BP Pulse Ox 98.3 F 91 H 20 127/75 93 L 11/28/17 08:22 11/28/17 08:22 11/28/17 08:22 11/28/17 08:22 11/28/17 08:22 Intake and Output: 11/28/17 11/28/17 06:59 18:59 Intake Total 960 800 Output Total 455 800 Balance 505 0 - Medications Medications: Current Medications Famotidine (Pepcid) 40 mg PO HS [facility] Last Admin: 11/27/17 21:47 Dose: 40 mg Heparin Sodium (Porcine) (Heparin) 5,000 units SC Q12 [facility] PRN Reason: Protocol Last Admin: 11/28/17 10:54 Dose: 5,000 units Lactated Ringer's (Lactated Ringer's) 1,000 mls @ 150 mls/hr IV .Q6H40M [facility] Last Admin: 11/28/17 08:32 Dose: 150 mls/hr Ondansetron HCl (Zofran Inj) 4 mg IVP Q6H PRN PRN Reason: Nausea/Vomiting - Labs Labs: 11/28/17 07:20 11/28/17 07:20 PT 10.3 SECONDS (9.4-12.5) 11/26/17 17:00 INR 0.91 (0.93-1.08) L 11/26/17 17:00 APTT 30.6 Seconds (25.1-36.5) 11/26/17 17:00
[2017-11-29] MEDS: Lactated Ringer's 1,000 ML IV SCH ×3 (06:04→19:55)
[2017-11-29 07:22] LABS: BASO # 0.02 K/mm3 (0.0-2.0); BASO % 0.3 % (0.0-3.0); EOS # 0.5 (0.0-0.7); EOS % 6.3 % (1.5-5.0); GRAN # 4.26 (1.4-6.5); HEMOGLOBIN 13.6 g/dL (14.0-18.0); LYMPH # 2.5 (1.2-3.4); LYMPH % 32.9 % (22.0-35.0); MEAN CELL VOLUME 91.5 fl (80.0-105.0); MEAN CORPUSCULAR HEMOGLOBIN 30.5 pg (25.0-35.0); MEAN CORPUSCULAR HGB CONC 33.3 g/dl (31.0-37.0); MEAN PLATELET VOLUME 12.5 fl (7.0-11.0); MONO # 0.3 (0.1-0.6); MONO % 4.5 % (1.0-6.0); RBC 4.46 10^6/uL (3.5-6.1); RED CELL DISTRIBUTION WIDTH 13.2 % (11.5-14.5); WHITE BLOOD COUNT 7.6 10^3/ul (4.5-11.0)
[2017-11-29 07:32] LABS: ALB/GLOB RATIO 1.3 (1.1-1.8); ALBUMIN 3.5 g/dL (3.0-4.8); ALT/SGPT 483 U/L (7-56); BLOOD UREA NITROGEN 9 mg/dL (7-21); CALCIUM 9.4 mg/dL (8.4-10.5); GFR AFRICAN-AMERICAN > 60; GFR NON-AFRICAN AMERICAN > 60
[2017-11-29 07:43] LABS: AST/SGOT 768 U/L (17-59)
[2017-11-29 09:56] LABS: CK-MB 5.9 ng/mL (0.0-3.6)
--- NOTE | 2017-11-29 12:15 | CP.PCM.PN ---
<NessaJuan Rowell - Last Filed: 11/29/17 12:09> Subjective - Date & Time of Evaluation Date of Evaluation: 11/29/17 Time of Evaluation: 12:10 - Subjective Subjective: Medicine progress note: Dr. Tovar Patient seen and examined at bedside. Patient denies any complaints. Urine is clear, no muscle aches. Objective - Vital Signs/Intake and Output Vital Signs (last 24 hours): Temp Pulse Resp BP Pulse Ox 98.2 F 57 L 16 138/79 98 11/29/17 07:46 11/29/17 07:46 11/29/17 07:46 11/29/17 07:46 11/29/17 07:46 Intake and Output: 11/29/17 11/29/17 06:59 18:59 Intake Total 4140 Output Total 3300 Balance 840 - Medications Medications: Current Medications Famotidine (Pepcid) 40 mg PO HS [facility] Last Admin: 11/28/17 21:24 Dose: 40 mg Heparin Sodium (Porcine) (Heparin) 5,000 units SC Q12 [facility] PRN Reason: Protocol Last Admin: 11/29/17 11:24 Dose: 5,000 units Lactated Ringer's (Lactated Ringer's) 1,000 mls @ 150 mls/hr IV .Q6H40M [facility] Last Admin: 11/29/17 06:04 Dose: 150 mls/hr Ondansetron HCl (Zofran Inj) 4 mg IVP Q6H PRN PRN Reason: Nausea/Vomiting - Labs Labs: 11/29/17 06:45 11/29/17 06:45 PT 10.3 SECONDS (9.4-12.5) 11/26/17 17:00 INR 0.91 (0.93-1.08) L 11/26/17 17:00 APTT 30.6 Seconds (25.1-36.5) 11/26/17 17:00 - Constitutional Appears: Well - Head Exam Head Exam: ATRAUMATIC, NORMAL INSPECTION, NORMOCEPHALIC - Eye Exam Eye Exam: EOMI, Normal appearance, PERRL Pupil Exam: NORMAL ACCOMODATION, PERRL - ENT Exam ENT Exam: Mucous Membranes Moist, Normal Exam - Neck Exam Neck Exam: Full ROM, Normal Inspection. absent: Lymphadenopathy - Respiratory Exam Respiratory Exam: Clear to Ausculation Bilateral, NORMAL BREATHING PATTERN - Cardiovascular Exam Cardiovascular Exam: REGULAR RHYTHM, +S1, +S2. absent: Murmur - GI/Abdominal Exam GI & Abdominal Exam: Soft, Normal Bowel Sounds. absent: Tenderness - Extremities Exam Extremities Exam: Full ROM, Normal Capillary Refill, Normal Inspection. absent : Joint Swelling, Pedal Edema - Back Exam Back Exam: NORMAL INSPECTION - Neurological Exam Neurological Exam: Alert, Awake, CN II-XII Intact, Normal Gait, Oriented x3 - Psychiatric Exam Psychiatric exam: Normal Affect, Normal Mood - Skin Skin Exam: Dry, Intact, Normal Color, Warm Assessment and Plan - Assessment and Plan (Free Text) Assessment: A/P: 67M presents with complaints of dark red urine discoloration. Atraumatic rhabdomyolysis following physical exertion - CK downtrending appropriately - Repeat CK and CMP q6h - Aggressive hydration LR@300 - Maintain goal urine output of 200-300 cc per hour - meeting goal right now - Continue to monitor kidney function Transaminitis - AST/ALT downtrending from admission - Avoid hepatotoxic agents - Hep panel negative Prophylaxis: Heparin 5000 IU, Zofran prn for nausea Diet: HHD Dispo: Patient likely ready for discharge tomorrow pending appropriate drop in CK levels (below 10,000) and no further complaints <Monica Tovar - Last Filed: 11/30/17 10:46> Objective - Vital Signs/Intake and Output Vital Signs (last 24 hours): Temp Pulse Resp BP Pulse Ox 98.6 F 55 L 18 129/77 100 11/30/17 07:54 11/30/17 07:54 11/30/17 07:54 11/30/17 07:54 11/30/17 07:54 Intake and Output: 11/30/17 11/30/17 06:59 18:59 Intake Total 1680 Output Total 1550 Balance 130 - Medications Medications: Current Medications Famotidine (Pepcid) 40 mg PO HS [facility] Last Admin: 11/29/17 21:07 Dose: 40 mg Heparin Sodium (Porcine) (Heparin) 5,000 units SC Q12 [facility] PRN Reason: Protocol Last Admin: 11/29/17 21:06 Dose: 5,000 units Lactated Ringer's (Lactated Ringer's) 1,000 mls @ 150 mls/hr IV .Q6H40M [facility] Last Admin: 11/30/17 05:03 Dose: 150 mls/hr Ondansetron HCl (Zofran Inj) 4 mg IVP Q6H PRN PRN Reason: Nausea/Vomiting - Labs Labs: 11/29/17 06:45 11/30/17 06:45 PT 10.3 SECONDS (9.4-12.5) 11/26/17 17:00 INR 0.91 (0.93-1.08) L 11/26/17 17:00 APTT 30.6 Seconds (25.1-36.5) 11/26/17 17:00 Attending/Attestation - Attestation I have personally seen and examined this patient.: Yes I have fully participated in the care of the patient.: Yes I have reviewed all pertinent clinical information, including history, physical exam and plan: Yes Notes (Text): I have seen and examined the patient at bedside. Agree with the above note with the following additions/ exceptions: Briefly this is 67 year old male who presented for evaluation of generalized body aches and hematuria after extreme work out. He was found to have non traumatic exertional rhabdomyolysis. CK is still significantly elevated however it is trending down. Myoglobinuria has resolved. Continue IV hydration. There are no electrolyte abnormalities. Advised patient to do gradual work out in the future to avoid rhabdomyolysis. LFTs trending down as well. Hep panel negative. Upon discharge patient will follow up with PMD of choice. Dr Monica Tovar
--- NOTE | 2017-11-29 14:15 | CP.PCM.PN ---
Subjective - Date & Time of Evaluation Date of Evaluation: 11/29/17 Time of Evaluation: 14:14 - Subjective Subjective: Nephrology Consultation Note: Assessment: Stable Severe rhabdomyolysis likely due to physical workout/exertion Active smoker Plan No acute need for renal replacement therapy at this time. Monitor Input/Output, daily weights and renal function with basic metabolic panel And electrolytes Continue the IV fluids. Continue to monitor CPK level, going down by 50% each day Replace electrolytes as needed Dose meds/antibiotics for Normal GFR. Glycemic control Further work up/management as per primary team Patient advised to stop smoking Patient advised for gradual physical workout in the future and avoid heavy physical exertion. Thanks for allowing me to participate in care of your patient. Will follow patient with you. Please call if any Qs. Discussed with team Dr Yves Laguna Office: [phone] Chief Complaint; Muscle aches HPI: Pt is a 37-year-old male without any past medical history active smoker 1 pack per day, started working out recently for last 3 days, came with the complaint of body aches and dark-colored urine. Found to have severe rhabdomyolysis, placed in the ICU then transferred to [facility] floor. Seen for nephrology consultation Patient at this time feels much better. Denies any complaints. Denies any drugs. Denies OTC/herbal meds or NSAIDs No recent iodinated contrast exposure. No obvious episodes of low BP. ROS: Cardiovascular: No chest pain. Pulmonary: No shortness of breath Gastrointestinal: denies abdominal pain No nausea. No vomiting. Genitourinary: No pain while urinating. Denies blood in urine. All other negative except as mentioned in HPI Physical Examination: bedside General Appearance: Comfortable, in no acute respiratory distress, co-operative . Vitals reviewed and noted as below Head; Atraumatic, normocephalic ENT: no ulcers no thrush. Tongue is midline. Oropharynx: no rash or ulcers. EYES: Eye muscles and extraocular movement intact. Sclera is anicteric. Right eye loss because of injury in the past Neck; supple no lymphadenopathy, no thyromegaly or bruit Lungs: Normal respiratory rate/effort. Breath sounds bilateral equal and clear Heart: Normal rate. s1s2 normal. No rub or gallop. Extremities: no edema. No varicose veins Neurological: Patient is alert, awake and oriented to person, place and time. No focal deficit. Strength bilateral appropriate and equal Skin: Warm and dry. Normal turgor. No rash. Palpitation: Normal elasticity for age Abdomen: Abdomen is soft. Bowel sounds +. There is no abdominal tenderness, no guarding/rigidity no organomegaly Psych: normal insight and normal affect/mood MSK: no joint tenderness or swelling. Digits and nails normal, no deformity : kidney or bladder not palpable. Labs/imaging reviewed. Past medical history, past surgical history, family history, social history, allergy reviewed and noted as below Family hx: no hx of CKD. Rest non-contributory Objective - Vital Signs/Intake and Output Vital Signs (last 24 hours): Temp Pulse Resp BP Pulse Ox 98.2 F 57 L 16 138/79 98 11/29/17 07:46 11/29/17 07:46 11/29/17 07:46 11/29/17 07:46 11/29/17 07:46 Intake and Output: 11/29/17 11/29/17 06:59 18:59 Intake Total 4140 Output Total 3300 Balance 840 - Medications Medications: Current Medications Famotidine (Pepcid) 40 mg PO HS [facility] Last Admin: 11/28/17 21:24 Dose: 40 mg Heparin Sodium (Porcine) (Heparin) 5,000 units SC Q12 ALDO PRN Reason: Protocol Last Admin: 11/29/17 11:24 Dose: 5,000 units Lactated Ringer's (Lactated Ringer's) 1,000 mls @ 150 mls/hr IV .Q6H40M [facility] Last Admin: 11/29/17 13:18 Dose: 150 mls/hr Ondansetron HCl (Zofran Inj) 4 mg IVP Q6H PRN PRN Reason: Nausea/Vomiting - Labs Labs: 11/29/17 06:45 11/29/17 06:45 PT 10.3 SECONDS (9.4-12.5) 11/26/17 17:00 INR 0.91 (0.93-1.08) L 11/26/17 17:00 APTT 30.6 Seconds (25.1-36.5) 11/26/17 17:00
[2017-11-30] MEDS: Lactated Ringer's 1,000 ML IV SCH (05:03)
[2017-11-30 07:45] LABS: ALB/GLOB RATIO 1.3 (1.1-1.8); ALBUMIN 3.3 g/dL (3.0-4.8); ALT/SGPT 391 U/L (7-56); AST/SGOT 473 U/L (17-59); BLOOD UREA NITROGEN 9 mg/dL (7-21); CALCIUM 9.4 mg/dL (8.4-10.5); GFR AFRICAN-AMERICAN > 60; GFR NON-AFRICAN AMERICAN > 60
[2017-11-30 07:55] VITALS: BP 129/77; PULSE 55; RESP 18; TEMP 98.6; O2SAT 100
--- NOTE | 2017-11-30 11:27 | CP.PCM.PN ---
Subjective - Date & Time of Evaluation Date of Evaluation: 11/30/17 Time of Evaluation: 11:26 - Subjective Subjective: Nephrology Consultation Note: Assessment: Stable Severe rhabdomyolysis likely due to physical workout/exertion: improved Active smoker Plan No acute need for renal replacement therapy at this time. Monitor Input/Output, daily weights and renal function with basic metabolic panel And electrolytes Continue the IV fluids. Continue to monitor CPK level, going down by 50% each day Replace electrolytes as needed Dose meds/antibiotics for Normal GFR. Glycemic control Further work up/management as per primary team Patient advised to stop smoking Patient advised for gradual physical workout in the future and avoid heavy physical exertion. pt stable for d/c from renal perspective Thanks for allowing me to participate in care of your patient. Please call if any Qs. Discussed with team Dr Yves Laguna Office: [phone] Chief Complaint; none, I feel good HPI: Pt is a 37-year-old male without any past medical history active smoker 1 pack per day, started working out recently for last 3 days, came with the complaint of body aches and dark-colored urine. Found to have severe rhabdomyolysis, placed in the ICU then transferred to [facility] floor. Seen for nephrology consultation Patient at this time feels much better. Denies any complaints. Denies any drugs. Denies OTC/herbal meds or NSAIDs No recent iodinated contrast exposure. No obvious episodes of low BP. ROS: Cardiovascular: No chest pain. Pulmonary: No shortness of breath Gastrointestinal: denies abdominal pain No nausea. No vomiting. Genitourinary: No pain while urinating. Denies blood in urine. All other negative except as mentioned in HPI Physical Examination: bedside General Appearance: Comfortable, in no acute respiratory distress, co-operative . Vitals reviewed and noted as below Head; Atraumatic, normocephalic ENT: no ulcers no thrush. Tongue is midline. Oropharynx: no rash or ulcers. EYES: Eye muscles and extraocular movement intact. Sclera is anicteric. Right eye loss because of injury in the past Neck; supple no lymphadenopathy, no thyromegaly or bruit Lungs: Normal respiratory rate/effort. Breath sounds bilateral equal and clear Heart: Normal rate. s1s2 normal. No rub or gallop. Extremities: no edema. No varicose veins Neurological: Patient is alert, awake and oriented to person, place and time. No focal deficit. Strength bilateral appropriate and equal Skin: Warm and dry. Normal turgor. No rash. Palpitation: Normal elasticity for age Abdomen: Abdomen is soft. Bowel sounds +. There is no abdominal tenderness, no guarding/rigidity no organomegaly Psych: normal insight and normal affect/mood MSK: no joint tenderness or swelling. Digits and nails normal, no deformity : kidney or bladder not palpable. Labs/imaging reviewed. Past medical history, past surgical history, family history, social history, allergy reviewed and noted as below Family hx: no hx of CKD. Rest non-contributory Objective - Vital Signs/Intake and Output Vital Signs (last 24 hours): Temp Pulse Resp BP Pulse Ox 98.6 F 55 L 18 129/77 100 11/30/17 07:54 11/30/17 07:54 11/30/17 07:54 11/30/17 07:54 11/30/17 07:54 Intake and Output: 11/30/17 11/30/17 06:59 18:59 Intake Total 1680 Output Total 1550 Balance 130 - Medications Medications: Current Medications Famotidine (Pepcid) 40 mg PO HS [facility] Last Admin: 11/29/17 21:07 Dose: 40 mg Heparin Sodium (Porcine) (Heparin) 5,000 units SC Q12 ALDO PRN Reason: Protocol Last Admin: 11/29/17 21:06 Dose: 5,000 units Lactated Ringer's (Lactated Ringer's) 1,000 mls @ 150 mls/hr IV .Q6H40M [facility] Last Admin: 11/30/17 05:03 Dose: 150 mls/hr Ondansetron HCl (Zofran Inj) 4 mg IVP Q6H PRN PRN Reason: Nausea/Vomiting - Labs Labs: 11/29/17 06:45 11/30/17 06:45 PT 10.3 SECONDS (9.4-12.5) 11/26/17 17:00 INR 0.91 (0.93-1.08) L 11/26/17 17:00 APTT 30.6 Seconds (25.1-36.5) 11/26/17 17:00
--- NOTE | 2017-11-30 13:08 | CP.PCM.DIS ---
Provider - Provider Date of Admission: 11/26/17 20:55 Attending physician: Monica Tovar MD Consults: Dr. Hayes: ICU Dr. Laguna: Nephrology Time Spent in preparation of Discharge (in minutes): 45 Hospital Course - Lab Results Lab Results: Micro Results 11/27/17 01:11 Naris MRSA Culture (Admit) - Final MRSA NOT DETECTED Most Recent Lab Values WBC 7.6 10^3/ul (4.5-11.0) 11/29/17 06:45 RBC 4.46 10^6/uL (3.5-6.1) 11/29/17 06:45 Hgb 13.6 g/dL (14.0-18.0) L 11/29/17 06:45 Hct 40.8 % (42.0-52.0) L 11/29/17 06:45 MCV 91.5 fl (80.0-105.0) 11/29/17 06:45 MCH 30.5 pg (25.0-35.0) 11/29/17 06:45 MCHC 33.3 g/dl (31.0-37.0) 11/29/17 06:45 RDW 13.2 % (11.5-14.5) 11/29/17 06:45 Plt Count 171 10^3/uL (120.0-450.0) 11/29/17 06:45 MPV 12.5 fl (7.0-11.0) H 11/29/17 06:45 Gran % 56.0 % (50.0-68.0) 11/29/17 06:45 Lymph % (Auto) 32.9 % (22.0-35.0) 11/29/17 06:45 [place] % (Auto) 4.5 % (1.0-6.0) 11/29/17 06:45 Eos % (Auto) 6.3 % (1.5-5.0) H 11/29/17 06:45 Baso % (Auto) 0.3 % (0.0-3.0) 11/29/17 06:45 Gran # 4.26 (1.4-6.5) 11/29/17 06:45 Lymph # (Auto) 2.5 (1.2-3.4) 11/29/17 06:45 [place] # (Auto) 0.3 (0.1-0.6) 11/29/17 06:45 Eos # (Auto) 0.5 (0.0-0.7) 11/29/17 06:45 Baso # (Auto) 0.02 K/mm3 (0.0-2.0) 11/29/17 06:45 PT 10.3 SECONDS (9.4-12.5) 11/26/17 17:00 INR 0.91 (0.93-1.08) L 11/26/17 17:00 APTT 30.6 Seconds (25.1-36.5) 11/26/17 17:00 Sodium 143 mmol/L (132-148) 11/30/17 06:45 Potassium 4.2 mmol/L (3.6-5.0) 11/30/17 06:45 Chloride 103 mmol/L (98-107) 11/30/17 06:45 Carbon Dioxide 34 mmol/L (21-33) H 11/30/17 06:45 Anion Gap 10 (10-20) 11/30/17 06:45 BUN 9 mg/dL (7-21) 11/30/17 06:45 Creatinine 0.9 mg/dl (0.8-1.5) 11/30/17 06:45 Est GFR ( Amer) > 60 11/30/17 06:45 Est GFR (Non-Af Amer) > 60 11/30/17 06:45 Random Glucose 89 mg/dL (70-110) 11/30/17 06:45 Calcium 9.4 mg/dL (8.4-10.5) 11/30/17 06:45 Phosphorus 3.7 mg/dL (2.5-4.5) 11/28/17 07:20 Magnesium 1.7 mg/dL (1.7-2.2) 11/28/17 07:20 Total Bilirubin 0.6 mg/dL (0.2-1.3) 11/30/17 06:45 AST 473 U/L (17-59) H D 11/30/17 06:45 ALT 391 U/L (7-56) H 11/30/17 06:45 Alkaline Phosphatase 48 U/L (38-126) 11/30/17 06:45 Total Creatine Kinase 43772 U/L (35-230) H 11/30/17 06:45 CK-MB (CK-2) 64500.0 ng/mL (0.0-3.6) H 11/30/17 06:45 CK-MB (CK-2) % 100.0 % (2.5-3.0) H 11/30/17 06:45 Total Protein 6.0 g/dL (5.8-8.3) 11/30/17 06:45 Albumin 3.3 g/dL (3.0-4.8) 11/30/17 06:45 Globulin 2.6 gm/dL 11/30/17 06:45 Albumin/Globulin Ratio 1.3 (1.1-1.8) 11/30/17 06:45 Urine Color Yellow (YELLOW) 11/26/17 17:00 Urine Appearance Sl cloudy (CLEAR) 11/26/17 17:00 Urine pH 6.5 (4.7-8.0) 11/26/17 17:00 Ur Specific [place] >= 1.030 (1.005-1.035) 11/26/17 17:00 Urine Protein 100 mg/dL (<30 mg/dL) H 11/26/17 17:00 Urine Glucose (UA) Negative mg/dL (NEGATIVE) 11/26/17 17:00 Urine Ketones Trace mg/dL (NEGATIVE) H 11/26/17 17:00 Urine Blood Large (NEGATIVE) H 11/26/17 17:00 Urine Nitrate Negative (NEGATIVE) 11/26/17 17:00 Urine Bilirubin Small (NEGATIVE) H 11/26/17 17:00 Urine Urobilinogen 0.2 E.U./dL (<1 E.U./dL) 11/26/17 17:00 Ur Leukocyte Esterase Negative Fifi/uL (NEGATIVE) 11/26/17 17:00 Urine RBC 2 - 5 /hpf (0-2) 11/26/17 17:00 Urine WBC Negative /hpf (0-6) 11/26/17 17:00 Salicylates < 1 mg/dL (2.0-20.0) L 11/26/17 17:00 Urine Opiates Screen Negative (NEGATIVE) 11/26/17 21:00 Urine Methadone Screen Negative (NEGATIVE) 11/26/17 21:00 Acetaminophen < 10.0 ug/ml (10.0-20.0) L 11/26/17 17:00 Ur Barbiturates Screen Negative (NEGATIVE) 11/26/17 21:00 Ur Phencyclidine Scrn Negative (NEGATIVE) 11/26/17 21:00 Ur Amphetamines Screen Negative (NEGATIVE) 11/26/17 21:00 U Benzodiazepines Scrn Negative (NEGATIVE) 11/26/17 21:00 U Oth Cocaine Metabols Negative (NEGATIVE) 11/26/17 21:00 U Cannabinoids Screen Negative (NEGATIVE) 11/26/17 21:00 Alcohol, Quantitative < 10 mg/dL (0-10) 11/26/17 17:00 Hepatitis A IgM Ab Negative (NEGATIVE) 11/26/17 21:00 Hep Bs Antigen Negative (NEGATIVE) 11/26/17 21:00 Hep B Core IgM Ab Negative (NEGATIVE) 11/26/17 21:00 Hepatitis C Antibody Negative (NEGATIVE) 11/26/17 21:00 Influenza Typ A,B (EIA) Negative for flu a/b (NEGATIVE) 11/26/17 22:49 - Hospital Course Hospital Course: started working out vigorously 3 days ago, and noticed dark urine with whole body ache. Denied steroid, testosterone, herbal supplements use. On admission, total CK is 503941, AST 1826, ALT 616. Elevated AST/ALT likely from muscle injury. Started on LR @ 300cc/hr with goal UO 200-300cc/hr which patient has been maintaining. 11/27: CK 626672--> 11398--> 52123; AST/ALT 1435/514. CMP and CK q6h. LR @ 150cc/ hr. 11/28: AST/ALT 1329/525. [place] [address]. No complaints. 11/29: [place] [address] 11/30: CK 10,800 Patient was stable with no complaints on day of discharge Discharge Exam - Head Exam Head Exam: ATRAUMATIC, NORMAL INSPECTION, NORMOCEPHALIC - Eye Exam Eye Exam: EOMI, Normal appearance, PERRL Pupil Exam: NORMAL ACCOMODATION, PERRL - Respiratory Exam Respiratory Exam: Clear to PA & Lateral, NORMAL BREATHING PATTERN, UNREMARKABLE - Cardiovascular Exam Cardiovascular Exam: REGULAR RHYTHM - GI/Abdominal Exam GI & Abdominal Exam: Normal Bowel Sounds, Unremarkable - Neurological Exam Neurological exam: Alert, CN II-XII Intact, Normal Gait, Oriented x3, Reflexes Normal - Psychiatric Exam Psychiatric exam: Normal Affect, Normal Mood - Skin Skin Exam: Dry, Intact, Normal Color, Warm Discharge Plan - Follow Up Plan Condition: CRITICAL Disposition: HOME/ ROUTINE Instructions: Rhabdomyolysis, Smoking: Not Just Harmful to Your Lungs and Heart Additional Instructions: PLEASE FOLLOW UP WITH PRIMARY PHYSICIAN CALL AND MAKE APPOINTMENT
== END 2017-11-30 14:00 | disposition home or self-care (01) | DRG 248 ==
LOC: ED 17:22 → ERH 20:55 → ICU 11-27 00:15 → 5RSO 11-27 09:53
PROVIDERS: ADMIT Hospitalist; ATTEND Hospitalist
DX: M62.82 Rhabdomyolysis (principal); F17.210 Nicotine dependence, cigarettes, uncomplicated; H54.61 Unqualified visual loss, right eye, normal vision left eye; R74.0 Nonspecific elevation of levels of transaminase and lactic acid dehydrogenase [LDH]; Z98.41 Cataract extraction status, right eye

== ENCOUNTER 2018-09-11 18:22 | Emergency (ER) | payer OTHER ==
[2018-09-11 18:33] VITALS: BMI 23.0
[2018-09-11 18:37] VITALS: BP 152/80; PULSE 76; RESP 18; TEMP 98.7
--- NOTE | 2018-09-11 19:19 | ED PDOC ---
Arrival/HPI - General Chief Complaint: Back Pain Time Seen by Provider: 09/11/18 18:45 Historian: Patient - History of Present Illness Narrative History of Present Illness (Text): 09/11/18 19:15 A 38 year old male, with no significant past medical history, presents to the emergency department complaining of left sided lower back pain for 1 week. 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 He believe he injured himself while carrying the box. Since then it has been worsening. He states it is a constant, sharp pain on the left side of the back and it radiates down the left leg. He denies any other trauma, numbness, weakness, tingling, fevers, chills, headache, dizziness, chest pain, shortness of breath, dyspnea on exertion, cough, abdominal pain, nausea, vomiting, diarrhea, neck pain, urinary/bowel changes, or any other complaint. Time/Duration: 1 week Symptom Onset: Sudden Symptom Course: Unchanged Activities at Onset: Rest, Light Context: Work Past Medical History - Provider Review Nursing Documentation Reviewed: Yes - Infectious Disease Hx of Infectious Diseases: None - Tetanus Immunization Tetanus Immunization: Unknown - Cardiac Hx Cardiac Disorders: No - Pulmonary Hx Respiratory Disorders: No - Neurological Hx Neurological Disorder: No - HEENT Hx HEENT Disorder: No - Renal Hx Renal Disorder: No - Endocrine/Metabolic Hx Endocrine Disorders: No - Hematological/Oncological Hx Blood Disorders: No - Integumentary Hx Dermatological Disorder: No - Musculoskeletal/Rheumatological Hx Musculoskeletal Disorders: No - Gastrointestinal Hx Gastrointestinal Disorders: No - Genitourinary/Gynecological Hx Genitourinary Disorders: No - Psychiatric Hx Psychophysiologic Disorder: No Hx Substance Use: No - Surgical History Other/Comment: right eye surgery x2 in 2014 post trauma to eye - Anesthesia Hx Anesthesia: Yes Family/Social History - Physician Review Nursing Documentation Reviewed: Yes Family/Social History: No Known Family HX Smoking Status: Light Smoker < 10 Cigarettes Daily Hx Alcohol Use: Yes Hx Substance Use: No Allergies/Home Meds Allergies/Adverse Reactions: Allergies No Known Allergies Allergy (Verified 09/11/18 18:33) Review of Systems - Physician Review All systems were reviewed & negative as marked: Yes - Review of Systems Constitutional: absent: Fevers Respiratory: absent: SOB, Cough Cardiovascular: absent: Chest Pain, AVILEZ Gastrointestinal: absent: Abdominal Pain, Stool Changes, Diarrhea, Nausea, Vomiting Genitourinary Male: absent: Urinary Output Changes Musculoskeletal: Back Pain. absent: Neck Pain Neurological: absent: Headache, Dizziness Physical Exam Vital Signs Reviewed: Yes Vital Signs Temp Pulse Resp BP Pulse Ox 09/11/18 18:33 98.7 F 76 18 152/80 H 97 Temperature: Afebrile Blood Pressure: Hypertensive Pulse: Regular Respiratory Rate: Normal Appearance: Positive for: Well-Appearing, Non-Toxic, Comfortable Pain Distress: None Mental Status: Positive for: Alert and Oriented X 3 - Systems Exam Head: Present: Atraumatic, Normocephalic Pupils: Present: Other (Blind in R eye, Pupil reactive and round in L eye) Extroacular Muscles: Present: EOMI Conjunctiva: Present: Normal Mouth: Present: Moist Mucous Membranes Neck: Present: Normal Range of Motion Respiratory/Chest: Present: Clear to Auscultation, Good Air Exchange Cardiovascular: Present: Regular Rate and Rhythm, Normal S1, S2 Abdomen: Present: Normal Bowel Sounds. No: Tenderness, Distention, Peritoneal Signs Back: Present: CVA Tenderness (L sided CVA tenderness). No: Paraspinal Tenderness Neurological: Present: GCS=15, Speech Normal Skin: Present: Warm, Rashes, Normal Color Psychiatric: Present: Alert, Oriented x 3, Normal Insight, Normal Concentration Medical Decision Making ED Course and Treatment: 09/11/18 19:20 Impression: A 38 year old male presents to the emergency department with a complaint of 1 week duration back pain. Differential Diagnosis included but are not limited to: --UTI --Pylenophritis --Renal Colic Plan: --Toradol --CT a/p -- Reassess and disposition Prior Visits: Notes and results from previous visits were reviewed. Patient was last seen in the emergency department on Progress Notes: Disposition/Present on Arrival - Present on Arrival Any Indicators Present on Arrival: Yes History of DVT/PE: No History of Uncontrolled Diabetes: No Urinary Catheter: No History of Decub. Ulcer: No History Surgical Site Infection Following: None - Disposition Have Diagnosis and Disposition been Completed?: Yes Diagnosis: Flank pain Disposition Time: 21:16 Patient Plan: Discharge Condition: STABLE Discharge Instructions (ExitCare): Flank Pain (DC) Print Language: GEORGIAN Additional Instructions: All medical record entries made by the Vinicioibluz were at my direction and personally dictated by me. I have reviewed the chart and agree that the record accurately reflects my personal performance of the history, physical exam, medical decision making, and the department course for this patient. I have also personally directed, reviewed, and agree with the discharge instructions and disposition. Prescriptions: Cyclobenzaprine [Cyclobenzaprine HCl] 10 mg PO Q8H #4 tab Ibuprofen [Motrin Tab] 600 mg PO Q6H PRN 6 Days #24 tab PRN Reason: Pain, Moderate (4-7) Referrals: Donna Sheffield MD [Medical Doctor] - Follow up with primary [facility] [place] - Follow up with primary Forms: [facility] (Lao), WORK NOTE
[2018-09-11 20:37] LABS: URINE BILIRUBIN NEGATIVE (NEGATIVE); URINE BLOOD NEGATIVE (NEGATIVE); URINE GLUCOSE (UA) NEGATIVE (NEGATIVE); URINE LEUKOCYTE ESTERASE NEGATIVE Leu/uL (NEGATIVE); URINE PROTEIN NEGATIVE mg/dL (<30 mg/dL); URINE UROBILINOGEN 0.2 E.U./dL (<1 E.U./dL)
[2018-09-11 20:39] LABS: URINE APPEARANCE CLEAR (CLEAR); URINE COLOR YELLOW (YELLOW)
[2018-09-11 21:58] VITALS: O2SAT 98
--- NOTE | 2018-09-12 08:41 | CT ---
Date of service: 09/11/2018 PROCEDURE: CT Abdomen and Pelvis without intravenous contrast HISTORY: L CVA tenderness COMPARISON: None. TECHNIQUE: Technique. Contrast dose: Radiation dose: Total exam DLP = 287.19 mGy-cm. This CT exam was performed using one or more of the following dose reduction techniques: Automated exposure control, adjustment of the mA and/or kV according to patient size, and/or use of iterative reconstruction technique. FINDINGS: LOWER THORAX: Unremarkable. LIVER: Nonspecific 12 millimeter hypodense lesion in the right hepatic lobe. GALLBLADDER AND BILE DUCTS: Unremarkable. PANCREAS: Unremarkable. No gross lesion or ductal dilatation. SPLEEN: Unremarkable. ADRENALS: Unremarkable. No mass. KIDNEYS AND URETERS: Unremarkable. No hydronephrosis. No solid mass. VASCULATURE: Unremarkable. No aortic aneurysm. No aortic atherosclerotic calcification or mural plaque present. BOWEL: Unremarkable. No obstruction. No gross mural thickening. APPENDIX: Unremarkable. Normal appendix. PERITONEUM: Unremarkable. No free fluid. No free air. LYMPH NODES: Unremarkable. No enlarged lymph nodes. BLADDER: Unremarkable. REPRODUCTIVE: Unremarkable. BONES: No acute fracture. OTHER FINDINGS: None. IMPRESSION: Nonspecific 12 millimeter hypodense lesion in the right hepatic lobe.
== END 2018-09-11 21:56 | disposition home or self-care (01) ==
LOC: ED 18:22
DX: R10.9 Unspecified abdominal pain (principal); F17.210 Nicotine dependence, cigarettes, uncomplicated
CPT/HCPCS: 74176; 81003; 96372; 99282; J1885